=== PATIENT | female | born 1970 | race Caucasian/White ===

== ENCOUNTER 2017-03-08 19:01 | Emergency (ER) | payer BC ==
[2017-03-08 19:34] VITALS: BP 110/72
--- NOTE | 2017-03-08 19:34 | UC ---
Abdominal Pain Female HPI - HPI Summary HPI Summary: 46 yo female with the onset of abd pain about 2 PM has been generalized about 4 pm pain became more severe and caused her to feel dyspneic some nausea BTL has been her only abd procedure - History of Current Complaint Chief Complaint: UCAbdominalPain Stated Complaint: ABDOMINAL PAIN, SHORTNESS OF BREATH Time Seen by Provider: 03/08/17 19:05 Hx Obtained From: Patient Hx Last Menstrual Period: 02/22/17 Onset/Duration: Gradual Onset, Lasting Hours Timing: Constant Severity Initially: Mild Severity Currently: Severe Pain Intensity: 8 Pain Scale Used: 0-10 Numeric Location: Diffuse Character: Colicy, Cramping Aggravating Factor(s): Nothing Alleviating Factor(s): Nothing Associated Signs and Symptoms: Positive: Decreased Appetite, Nausea Allergies/Adverse Reactions: Allergies Allergy/AdvReac Type Severity Reaction Status Date / Time No Known Allergies Allergy Verified 03/08/17 19:12 Home Medications: Home Medications NK [No Home Medications Reported] 03/08/17 [History Confirmed 03/08/17] PMH/Surg Hx/FS Hx/Imm Hx Previously Healthy: Yes - Surgical History Surgical History: Yes Surgery Procedure, Year, and Place: fatty cyst. Tubal. Vein Strip on legs - Family History Known Family History: Positive: Hypertension - Social History Alcohol Use: Occasionally Substance Use Type: None Smoking Status (MU): Never Smoked Tobacco Review of Systems Constitutional: Negative Skin: Negative Eyes: Negative ENT: Negative Respiratory: Negative Cardiovascular: Negative Gastrointestinal: Abdominal Pain, Nausea Genitourinary: Negative Motor: Negative Neurovascular: Negative Musculoskeletal: Negative Neurological: Negative Psychological: Negative All Other Systems Reviewed And Are Negative: Yes Physical Exam Triage Information Reviewed: Yes Appearance: Pain Distress, Thin Vital Signs: Initial Vital Signs Temp 97.8 F 03/08/17 19:03 Pulse 93 03/08/17 19:03 Resp 18 03/08/17 19:03 BP 130/115 03/08/17 19:03 Pulse Ox 100 03/08/17 19:03 Vital Signs Reviewed: Yes Eyes: Positive: Conjunctiva Clear ENT: Positive: Hearing grossly normal. Negative: Nasal congestion, Nasal drainage, Tonsillar exudate Neck: Positive: Supple, Nontender, No Lymphadenopathy Respiratory: Positive: Lungs clear, Normal breath sounds, No respiratory distress Cardiovascular: Positive: RRR, No Murmur Abdomen Description: Negative: Nontender - diffusely tender /worse RLQ Musculoskeletal: Positive: ROM Intact, No Edema Neurological: Positive: Alert Psychological Exam: Normal Skin Exam: Normal Abd Pain Female Course/Dx - Course Course Of Treatment: discussed with Dr. Viveros at [facility]. accepts pt. She refuses to go to [facility]. pt declines EMS transfer - Differential Dx/Diagnosis Provider Diagnoses: abdominal pain of uncertain cause Discharge - Discharge Plan Condition: Fair Disposition: AGAINST MEDICAL ADVICE
== END 2017-03-08 19:37 | disposition left against medical advice (07) ==
LOC: UCCORT 19:01
DX: R10.31 Right lower quadrant pain (principal); R10.84 Generalized abdominal pain; R11.0 Nausea
CPT/HCPCS: 93005; 99202; G0463